=== PATIENT | male | born 1990 | race Caucasian/White ===

== ENCOUNTER 2023-07-23 23:43 | Emergency (ER) | payer SELFPAY ==
[~2023-07-23] VITALS: Ht 193 cm; Wt 88.5 kg
[2023-07-23 23:51] VITALS: BP 134/74; PULSE 93; RESP 18; TEMP 98.3; O2SAT 97
[2023-07-23 23:55] VITALS: BP 134/74; PULSE 93; RESP 18; TEMP 98.3; O2SAT 97
[2023-07-24] MEDS: IBUPROFEN 800 MG TAB PO ONE (00:09)
== END 2023-07-24 00:40 ==
LOC: MED 23:43
DX: Z02.89 Encounter for other administrative examinations (principal); M25.511 Pain in right shoulder
CPT/HCPCS: 73000; 73030; 99284